=== PATIENT | female | born 1985 | race African-American/Black ===

== ENCOUNTER 2020-12-27 12:31 | Emergency (ER) | payer OTHER, SELFPAY ==
--- NOTE | ~2020-12-27 | XR_ITS ---
EXAMINATION: XR shoulder RT min 2V EXAM DATE: 12/27/2020 13:23 INDICATION: Right shoulder pain. Pt is a email marketer, holds bag on Rt shoulder, superior Rt shoulde r pain x 2-3 mos. TECHNIQUE: The following right shoulder projections obtained: frontal projection with internal rotati on, frontal projection with external rotation, Grashey, and scapular Y view (4+ views). There is no prior study for comparison. FINDINGS: No evidence of right shoulder rotator cuff calcific tendinosis. Unremarkable right luda ohumeral and acromioclavicular joints. Right humeral head bone island. There are no acute fractures or dislocations identified. There is no subcutaneous gas. The soft tissue is unremarkable. There are no radiopaque foreign bodies. IMPRESSION: 1. Unremarkable right shoulder exam. Reviewed, dictated and finalized at location B.
[2020-12-27 12:58] VITALS: BP 142/102; PULSE 87; RESP 17; TEMP 36.7; O2SAT 100
--- NOTE | 2020-12-27 14:12 | ED.UPPEXIN ---
HPI - Extremity Injury (Upper) General Chief Complaint: Extremity Injury, Upper Stated Complaint: right should pain Time Seen by Provider: 12/27/20 14:06 Source: patient Mode of arrival: ambulatory Limitations: no limitations History of Present Illness HPI narrative: Patient is a 35-year-old female who presents complaining of right shoulder pain. 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 She denies known injury, but does report that she carries a heavy bag. She denies all other complaints at this time. She denies significant medical history. complaint: injury to: right and shoulder Related Data Home Medications Medication Instructions Recorded Confirmed No Home Medications 12/27/20 12/27/20 Allergies Allergy/AdvReac Type Severity Reaction Status Date / Time No Known Allergies Allergy Verified 12/27/20 13:56 Review of Systems Review of Systems: Narrative: CONSTITUTIONAL: Denies fever, chills, or sweats. EYES: Denies visual changes, redness, or discharge. ENT: Denies rhinorrhea, congestion, sore throat, or otalgia. CARDIOVASCULAR: Denies chest pain, palpitations, or edema. RESPIRATORY: Denies cough or dyspnea. GASTROINTESTINAL: Denies abdominal pain, nausea, vomiting, or diarrhea. GENITOURINARY: Denies dysuria or hematuria. SKIN: Denies rash or itching. MUSCULOSKELETAL: Reports right shoulder pain NEUROLOGIC: Denies headache, numbness, dizziness, or weakness. PSYCHIATRIC: Denies anxiety or depression. PMFSH Social History Social History (Updated 12/27/20 @ 14:14 by ARABELLA Varma) Smoking status: Never smoker Alcohol intake: never Substance use: never Occupation/Education: occupation Gender identity (if verbalized by the patient): Female Comments At the time of signature, I have reviewed and agree with nursing past medical, surgical, social, and family history unless otherwise noted. Please see nursing chart for further information. There is no relevant family history pertinent to the presenting complaint. Exam Narrative: Exam Narrative: GENERAL: Well-appearing, well-nourished, and in no acute distress. HEAD: Normocephalic, atraumatic. EYES: EOMI. No redness or drainage. Conjunctiva are normal. ENT: Mucous membranes pink and moist. CHEST: No respiratory distress. Clear to auscultation. HEART: Regular rate and rhythm. MUSCULOSKELETAL: No bony tenderness. EXTREMITIES: Normal range of motion. No edema, no deformity noted SKIN: Warm, dry, no rash. NEURO: No focal deficits. Alert and oriented x3. Gait steady. PSYCH: Normal affect. No signs of depression or anxiety. Course Vital Signs Vital signs: Vital Signs Temperature 36.7 C 12/27/20 12:58 Pulse Rate 87 12/27/20 12:58 Respiratory Rate 17 12/27/20 12:58 Blood Pressure 142/102 H 12/27/20 12:58 Pulse Oximetry 100 12/27/20 12:58 Temperature 36.7 C 12/27/20 12:58 Pulse Rate 87 12/27/20 12:58 Respiratory Rate 17 12/27/20 12:58 Blood Pressure 142/102 H 12/27/20 12:58 Pulse Oximetry 100 12/27/20 12:58 Reviewed-patient is informed that they may have pre-hypertension or hypertension based on a blood pressure reading. I recommend the patient call the primary care provider listed on their discharge instructions or a physician of their choice this week to arrange follow-up for further evaluation of possible pre-hypertension or hypertension. MDM - Extremity Injury (Upper) MDM Narrative Medical decision making narrative: Patient's x-rays are negative for fracture or acute injury. Discussed with patient most likely musculoskeletal. Discussed pain management and follow-up with orthopedics. Patient agrees with plan of care. Patient is stable for discharge home with outpatient follow-up as directed. Differential Diagnosis Differential diagnosis: Likely other (Sprain, strain, fracture, dislocation) Critical Care Time Critical
[2020-12-27] MEDS: KETOROLAC 30 MG/ML VIAL (*BKC) IM (14:23)
== END 2020-12-27 14:47 | disposition home or self-care (01) ==
PROVIDERS: Emergency Provider Nurse Practitioner
DX: S46.911A Strain of unspecified muscle, fascia and tendon at shoulder and upper arm level, right arm, initial encounter (principal); R03.0 Elevated blood-pressure reading, without diagnosis of hypertension; X50.0XXA Overexertion from strenuous movement or load, initial encounter
CPT/HCPCS: 73030; 96372; 99283; J1885

== ENCOUNTER 2021-04-12 08:46 | Outpatient (CLI) | payer OTHER, SELFPAY ==
--- NOTE | 2021-04-12 11:30 | NEURO_ITS ---
Impression: # Complains of numbness of hands. # No Carpal Tunnel Syndrome. # Right ulnar neuropathy across the elbow. # Normal needle/EMG exam. Nerve Conduction Studies Anti Sensory Summary Table Stim Site NR Peak (ms) P-T Amp (?V) Site1 Site2 Delta-P (ms) Dist (cm) Dwight (m/s) Left Median Anti Sensory (2-3nd Digit) Wrist 2.3 85.2 Wrist 2-3nd Digit 2.3 14.0 61 Wrist 2.3 69.8 Wrist 2-3nd Digit 2.3 14.0 61 Right Median Anti Sensory (2-3nd Digit) Wrist 2.4 71.2 Wrist 2-3nd Digit 2.4 14.0 58 Wrist 2.6 36.4 Wrist 2-3nd Digit 2.4 14.0 58 Left Radial Anti Sensory (Base 1st Digit) Wrist 1.9 31.2 Wrist Base 1st Digit 1.9 0.0 Right Radial Anti Sensory (Base 1st Digit) Wrist 1.9 30.2 Wrist Base 1st Digit 1.9 0.0 Left Ulnar Anti Sensory (5th Digit) Wrist 2.3 57.9 Wrist 5th Digit 2.3 14.0 61 Right Ulnar Anti Sensory (5th Digit) Wrist 2.2 16.4 Wrist 5th Digit 2.2 14.0 64 Motor Summary Table Stim Site NR Onset (ms) O-P Amp (mV) Site1 Site2 Delta-0 (ms) Dist (cm) Dwight (m/s) Left Median Motor (Abd Poll Brev) Wrist 2.4 4.4 Elbow Wrist 3.9 24.0 62 Elbow 6.3 4.3 Right Median Motor (Abd Poll Brev) Wrist 2.6 6.7 Elbow Wrist 3.8 24.0 63 Elbow 6.4 7.1 Left Ulnar Motor (Abd Dig Minimi) Wrist 2.2 6.8 A Elbow Wrist 3.9 25.0 64 A Elbow 6.1 5.5 Right Ulnar Motor (Abd Dig Minimi) Wrist 2.0 6.7 A Elbow Wrist 4.6 24.0 52 A Elbow 6.6 4.7 B Elbow Wrist 3.2 17.0 53 B Elbow 5.2 4.9 F Wave Studies NR F-Lat (ms) L-R F-Lat (ms) Left Median (Mrkrs) (Abd Poll Brev) 23.09 0.01 Right Median (Mrkrs) (Abd Poll Brev) 23.10 0.01 Left Ulnar (Mrkrs) (Abd Dig Min) 23.04 0.14 Right Ulnar (Mrkrs) (Abd Dig Min) 23.19 0.14 EMG Side Muscle Nerve Root Ins Act Fibs Amp Dur Recrt Comment Right 1stDorInt Ulnar C8-T1 Nml Nml Nml Nml Nml Right Ext Indicis Radial (Post Int) C7-8 Nml Nml Nml Nml Nml Right Ext Digitorum Radial (Post Int) C7-8 Nml Nml Nml Nml Nml Right BrachioRad Radial C5-6 Nml Nml Nml Nml Nml Right PronatorTeres Median C6-7 Nml Nml Nml Nml Nml Right Abd Poll Brev Median C8-T1 Nml Nml Nml Nml Nml Left 1stDorInt Ulnar C8-T1 Nml Nml Nml Nml Nml Left Ext Indicis Radial (Post Int) C7-8 Nml Nml Nml Nml Nml Left Ext Digitorum Radial (Post Int) C7-8 Nml Nml Nml Nml Nml Left BrachioRad Radial C5-6 Nml Nml Nml Nml Nml Left PronatorTeres Median C6-7 Nml Nml Nml Nml Nml Left Abd Poll Brev Median C8-T1 Nml Nml Nml Nml Nml MTDD
== END 2021-04-12 08:47 | disposition home or self-care (01) ==
LOC: ANHNEURO 08:49
PROVIDERS: Visit Provider Orthopaedic Surgery
DX: G56.21 Lesion of ulnar nerve, right upper limb (principal)
CPT/HCPCS: 95886; 95911

== ENCOUNTER 2021-09-26 08:29 | Outpatient (CLI) | payer OTHER, SELFPAY ==
--- NOTE | ~2021-09-26 | MR_ITS ---
EXAMINATION: MR cervical spine wo con DATE: 09/26/2021 09:29 INDICATION: Cervical radiculopathy. TECHNIQUE: Magnetic resonance imaging (MRI) of the cervical spine was performed without intravenous c ontrast. Sequences included sagittal T2-weighted FSE, sagittal T2-weighted FS FSE, sagittal T1-weight ed FSE, axial MERGE, and axial T2-weighted FSE. COMPARISON: None FINDINGS: There is hypolordosis of cervical spine. Vertebral body heights and intervertebral disc hei ghts are normal. The spinal cord signal intensity is normal. The following disc levels are specifical ly discussed: C2-C3: The disc does not extend beyond the endplate margin. There is no uncovertebral joint osteoarth ritis. There is no facet joint osteoarthritis. There is no neural foraminal stenosis. There is no benjamin tral canal stenosis. C3-C4: There is a central extrusion. There is no uncovertebral joint osteoarthritis. There is no face t joint osteoarthritis. There is no neural foraminal stenosis. There is mild central canal stenosis. C4-C5: There is a central protrusion. There is mild bilateral uncovertebral joint osteoarthritis. The re is no facet joint osteoarthritis. There is no neural foraminal stenosis. There is mild central can al stenosis. C5-C6: There is a central protrusion. There is mild bilateral uncovertebral joint osteoarthritis. The re is no facet joint osteoarthritis. There is no neural foraminal stenosis. There is mild central can al stenosis. C6-C7: The disc does not extend beyond the endplate margin. There is mild bilateral uncovertebral darcy nt osteoarthritis. There is mild bilateral facet joint osteoarthritis. There is no neural foraminal s tenosis. There is no central canal stenosis. C7-T1: The disc does not extend beyond the endplate margin. There is no uncovertebral joint osteoarth ritis. There is mild bilateral facet joint osteoarthritis. There is no neural foraminal stenosis. The re is no central canal stenosis. IMPRESSION: 1. Mild cervical spondylosis. Reviewed, dictated and finalized at location A.
== END 2021-09-26 08:30 | disposition home or self-care (01) ==
PROVIDERS: PCP Family Medicine Adolescent Medicine; Visit Provider Family Medicine Adolescent Medicine
DX: M47.22 Other spondylosis with radiculopathy, cervical region (principal)
CPT/HCPCS: 72141

== ENCOUNTER 2022-03-20 07:30 | Outpatient (RCR) | payer OTHER, SELFPAY ==
[2022-01-31 08:01] VITALS: BP_SYST 140
--- NOTE | 2022-01-31 09:11 | PTOPEVAL ---
PHYSICAL THERAPY INITIAL EVALUATION. Thank you for referring Shayy Shah to [facility].? The patient is scheduled to be seen for therapy? 1-2x/week for 4 weeks. Please review, sign, date and return this plan of care KAYCE. I agree with and certify that the following plan of care is medically necessary. 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 She carries her bag on her R shoulder, and carries magazines in the nook of her elbow. She has elbow surgery for ulnar neuropathy 3 weeks ago, shes states she still has some pain with this. She reports constant shoulder pain , even while resting, and sleeping. She states a muscle relaxer is the only thing she has found to help with her pain. Pt reports headaches 3 times a week. Pt states she has injections in her shoulder yesterday from pain management. She states sometimes it feels like her shoulder pops out of place Pain Assessment Self Report Pain Assessment Right Shoulder(s) Reported Pain Level 6 Pain Description Tightness Pain Frequency Acute,Continuous Lowest Pain Intensity 6 Greatest Pain Intensity 8 Cervical and Lumbar ROM Cervical ROM WFL/Left,WFL/Right Cervical ROM Comments increased reports of pulling sensation with L lateral flexion Upper Extremity Range of Motion Right Shoulder Flexion - Active 95 Shoulder Flexion - Passive 140 Shoulder Abduction - Active 99 Shoulder Abduction - Passive 140 Shoulder Medial Rotation - Passive 50 Shoulder Lateral Rotation - Passive 35 Scapular/Shoulder Range of Motion reported increased pain with Comments shoulder motion in all directions including scapular elevation and retraction functional rotation limited by elbow motion
--- NOTE | 2022-02-18 07:38 | PCPTNOTE ---
Patient called & cancelled scheduled appointment this date due to going out of town for a .
--- NOTE | 2022-02-20 16:00 | PCPTNOTE ---
Patient called & cancelled scheduled appointment this date due to having too much pain where she had injections this morning.
[2022-02-28 08:05] VITALS: BP_SYST 150
--- NOTE | 2022-02-28 08:52 | PTOPPROG ---
Evaluation Information Assessment Status Progress Diagnosis R shoulder pain Onset chronic Subjective Information Pt states she is doing well. She received an injection recently in her shoulder which has helped with the pain but she still reports tightness. Pt reports 50% improvement in overall symptoms. Assessment PT Clinical Summary Shayy presents to therapy today for her progress report following 4 visits of skilled therapy to treat her R shoulder pain. Today she demonstrates improved active and passive shoulder ROM but this is still decreased compared to her L shoulder. She also continues to demonstrate decreased strength on the R. She is still very tender with palpation in her R upper trap region. Continuation of skilled therapy services are indicated to address the remaining deficits, progress pain management, and to return to baseline function. Plan of Care Interventions Electrical Stimulation,Hot Pack/Cold Pack,Manual Therapy,Neuro Re-education,Patient/Caregiver Educati,Therapeutic Activities,Therapeutic Exercise PT Services Indicated Yes Treatment Frequency and 2x/wk for 4 wks Duration These treatments will address the objective and functional deficits as defined above. The patient will be advanced safely and appropriately in order for the patient to progress towards his/her prior level of function. Additional exercises will be introduced and as well as a comprehensive home exercise program upon discharge, if needed, ?to ensure carryover of functional gains achieved in the clinic. This treatment plan has been reviewed and agreement upon by the patient.
--- NOTE | 2022-03-11 10:31 | PCPTNOTE ---
Patient called & cancelled scheduled appointment this date due to family emergency.
--- NOTE | 2022-03-13 08:58 | PCPTNOTE ---
Patient called & cancelled scheduled appointment this date due to family emergency.
--- NOTE | 2022-03-18 09:05 | PCPTNOTE ---
Patient called & cancelled scheduled appointment this date due to being sick.
--- NOTE | 2022-03-26 11:21 | PCPTNOTE ---
Pt did not show up for her progress report this date. Called and left voicemail for the patient asking for her to follow up with the clinic. If we do not hear back in the next week she will be discharged.
--- NOTE | 2022-04-02 12:01 | PTOPDC ---
Assessment and note entered by Nmeo Canseco, PT, DPT Evaluation Information Assessment Status Discharge - Pt Not Present Diagnosis R shoulder pain Onset chronic Subjective Information Pt did not show up to her scheduled re-evaluation on 03/26/22. Called and left voicemail for patient regarding missed appointment with instructions to follow up with the clinic within a week to reschedule or she will be discharge. She has not called. Assessment PT Clinical Summary Shayy has completed 8 visits of skilled therapy from 01/31/22 to 03/20/22. She will be discharged at this time. If she needs to continue at a later time she will need a new order. Plan of Care Treatment Frequency and to be discharged Duration
== END 2022-04-02 15:03 | disposition home or self-care (01) ==
LOC: ANHPT 07:30
PROVIDERS: PCP Family Medicine Adolescent Medicine; Visit Provider Nurse Practitioner Family
DX: M25.511 Pain in right shoulder (principal); M79.18 Myalgia, other site
CPT/HCPCS: 97014; 97110; 97112; 97140; 97161; 97530; 99199; G0283

== ENCOUNTER 2023-04-07 13:51 | Outpatient (CLI) | payer OTHER, SELFPAY ==
--- NOTE | ~2023-04-07 | XR_ITS ---
XR hand RT min 3V DATE: 04/07/2023 14:15 INDICATION: Carpal tunnel syndrome TECHNIQUE: 3 views of right hand COMPARISON: None FINDINGS: No fracture, dislocation, periosteal reaction or bone destruction, erosive change or chondr al calcinosis. Joint spaces are preserved. IMPRESSION: Negative Reviewed, dictated and finalized at location B. IMPRESSION: Negative
== END 2023-04-07 13:52 | disposition home or self-care (01) ==
PROVIDERS: PCP Family Medicine Adolescent Medicine; Visit Provider Plastic Surgery
DX: G56.01 Carpal tunnel syndrome, right upper limb (principal); R05.9 Cough, unspecified; R50.9 Fever, unspecified
CPT/HCPCS: 73130

== ENCOUNTER 2023-05-08 13:33 | Outpatient (CLI) | payer OTHER, SELFPAY ==
--- NOTE | 2023-05-08 14:15 | NEURO_ITS ---
Impression: # Complains of numbness of right hand. # No Carpal Tunnel Syndrome or ulnar neuropathy. # Normal Nerve Conduction Study. # Needle/EMG exam not requested. Nerve Conduction Studies Anti Sensory Summary Table Stim Site NR Peak (ms) P-T Amp (?V) Site1 Site2 Delta-P (ms) Dist (cm) Dwight (m/s) Right Median Anti Sensory (2-3nd Digit) Wrist 2.3 69.8 Wrist 2-3nd Digit 2.3 14.0 61 Wrist 2.3 77.3 Wrist 2-3nd Digit 2.3 14.0 61 Right Radial Anti Sensory (Base 1st Digit) Wrist 2.0 35.8 Wrist Base 1st Digit 2.0 0.0 Right Ulnar Anti Sensory (5th Digit) Wrist 2.0 64.5 Wrist 5th Digit 2.0 14.0 70 Motor Summary Table Stim Site NR Onset (ms) O-P Amp (mV) Site1 Site2 Delta-0 (ms) Dist (cm) Dwight (m/s) Right Median Motor (Abd Poll Brev) Wrist 2.2 11.3 Elbow Wrist 4.3 25.0 58 Elbow 6.5 8.2 Right Ulnar Motor (Abd Dig Minimi) Wrist 2.1 6.4 A Elbow Wrist 4.2 25.0 60 A Elbow 6.3 5.5 F Wave Studies NR F-Lat (ms) L-R F-Lat (ms) Right Median (Mrkrs) (Abd Poll Brev) 21.83 Right Ulnar (Mrkrs) (Abd Dig Min) 22.35 MTDD
== END 2023-05-08 13:34 | disposition home or self-care (01) ==
PROVIDERS: PCP Family Medicine Adolescent Medicine; Visit Provider Family Medicine Adolescent Medicine
DX: G62.9 Polyneuropathy, unspecified (principal)
CPT/HCPCS: 95909